=== PATIENT | male | born 1995 | race Caucasian/White ===

== ENCOUNTER 2023-02-19 15:58 | Emergency (ER) | payer SELFPAY ==
[~2023-02-19] VITALS: Ht 177.8 cm; Wt 77.1 kg
[2023-02-19 16:32] VITALS: TEMP 87; O2SAT 100
[2023-02-19 19:10] VITALS: BP 129/85
[2023-02-19 19:27] LABS: CALCIUM, SERUM 10.1 mg/dL (8.5-10.1); CREATININE 1.1 mg/dL (0.6-1.3); POTASSIUM 4.2 mmol/L (3.5-5.1)
[2023-02-19 19:35] LABS: BASOPHILS % (AUTO) 0.2 % (0.0-2.0); EOSINOPHILS # (AUTO) 0.1 K/uL (0.0-0.7); HEMATOCRIT 49 % (39-51); HEMOGLOBIN 16.6 g/dL (13.5-17.5); LYMPHOCYTES # (AUTO) 1.2 K/uL (0.8-4.8); LYMPHOCYTES % (AUTO) 22.8 % (20.0-44.0); MEAN CORPUSCULAR HEMOGLOBIN 29 PG (26.0-33.0); MEAN CORPUSCULAR HGB CONC 34 g/dl (31.0-36.0); MEAN CORPUSCULAR VOLUME 87 fL (80-96); MONOCYTES # (AUTO) 0.2 K/uL (0.1-1.30); MONOCYTES % (AUTO) 4.3 % (2.0-12.0); NEUTROPHILS # (AUTO) 3.8 K/uL (1.8-8.9); NEUTROPHILS % (AUTO) 70.7 % (43.0-81.0); PLATELET COUNT (AUTO) 277 K/uL (150-450); RED BLOOD CELL COUNT(AUTO) 5.63 MIL/uL (4.5-6.0); RED CELL DISTRIBUTION WIDTH 12.6 % (11.5-15.0); WHITE BLOOD COUNT (AUTO) 5.4 K/uL (4.3-11.0)
[2023-02-19] MEDS ORDERED: KETOROLAC TROMETHAMINE INJ 30 MG/ML VIAL ONE (20:24)
[2023-02-19] MEDS ORDERED: IBUP-1955 PO (20:24)
[2023-02-19] MEDS ORDERED: CYCL5TAB PO (20:24)
[2023-02-19] MEDS ORDERED: CYCLOBENZAPRINE 10 MG TABLET ONE (20:24)
[2023-02-19] MEDS ORDERED: KETOROLAC TROMETHAMINE INJ 30 MG/ML VIAL IV ONE (20:30)
[2023-02-19] MEDS ORDERED: CYCLOBENZAPRINE 10 MG TABLET PO ONE (20:30)
== END 2023-02-19 21:01 | disposition home or self-care (01) ==
LOC: ER 16:12
DX: Q61.2 Polycystic kidney, adult type (principal); M54.50 Low back pain, unspecified; Z79.899 Other long term (current) drug therapy
CPT/HCPCS: 99285; 96374; 72131; 85025; 80048; 36415; J1885